=== PATIENT | female | born 1980 | race Caucasian/White ===

== ENCOUNTER 2024-07-01 17:31 | Emergency (ER) | payer OTHER, SELFPAY ==
[2024-07-01] VITALS (7 sets, daily range): BP systolic 104–173; BP diastolic 51–118; BMI 32.6
[2024-07-01 18:05] LABS: % Basophils 0.9 % (0-2); % Immature Granulocytes 0.4 % (0-0.5); % Lymphocytes 17.3 % (20.5-51.1); % Monocytes 7.9 % (1.7-9.3); % Neutrophils 69.5 % (42.2-75.2); Absolute Basophils 0.1 10^3/uL (0-0.2); Absolute Eosinophils 0.4 10^3/uL (0-0.7); Absolute Lymphocytes 1.9 10^3/uL (1.2-3.4); Absolute Monocytes 0.9 10^3/uL (0.1-0.6); Absolute Neutrophils 7.5 10^3/uL (1.4-6.5); Hematocrit 44.5 % (37.0-47.0); Hemoglobin 15.2 g/dL (12.0-16.0); Mean Corp Hgb Conc. 34.2 g/dL (33.0-37.0); Mean Corpuscular Hgb 31.7 pg (27.0-31.0); Mean Corpuscular Volume 92.7 fL (81.0-99.0); Mean Platelet Volume 9.8 fL (7.4-10.4); Nucleated Red Blood Cells % 0 %; Platelet Count 285 10^3/uL (130-400); Red Cell Dist. Width 12.4 % (11.5-14.5); White Blood Cell Count 10.8 10^3/uL (4.8-10.8)
[2024-07-01 18:21] LABS: ALT (SGPT) 17 U/L (0-35); AST (SGOT) 21 U/L (14-36); Albumin 4.5 g/dl (3.5-5.0); Alkaline Phosphatase 132 U/L (38-126); Blood Urea Nitrogen 13 mg/dl (7-17); Calcium 9.4 mg/dl (8.4-10.2); Carbon Dioxide 25 mmol/L (22-30); Chloride 102 mmol/L (98-107); Glucose 102 mg/dl (70-99); Potassium 4.4 mmol/L (3.5-5.1); Sodium 136 mmol/L (135-145); Total Bilirubin 0.6 mg/dl (0.2-1.3); Total Protein 7.5 g/dl (6.3-8.2); eGFR > 60.00
--- NOTE | 2024-07-01 20:26 | ED.GENMED ---
History of Present Illness
General
Chief Complaint: Blood Pressure Problem
Source: patient
Exam Limitations: none
Time Seen by Provider: 07/01/24 20:07
Nursing documentation reviewed up to this point in time: agreed with
History of Present Illness
History of Present Illness:
44-year-old female presenting to the emergency department today with concerns of elevated blood pressure while at physical therapy. Blood pressure was in the 180s over 110s. She came she had a vague headache she took Excedrin without relief. Does
have a history of MS which is why she was at PT in the first place. Denies any significant worsening symptoms or neurologic symptoms at this point no chest pain or shortness of breath. No changes in vision.
Review of Systems
Review of Systems
Allergies reviewed?: Yes
All Other Systems: ROS reviewed and negative except as documented in HPI and ROS
Phy Exam
Physical Exam
Physical Exam:
GENERAL: Alert , in no apparent distress
EYE: pupils equal and reactive
NECK: Supple, no significant adenopathy.
ENT: o/p clr, mmm.
CARDIAC: Regular rate and rhythm .
LUNGS: Clear breath sounds bilaterally, no acute respiratory distress, no wheezes/rales/rhonchi
ABDOMEN: Soft, without focal tenderness, no r/g, no cvat
NEUROLOGICAL: Alert and oriented, no focal neuro deficits
SKIN: Warm and dry, skin intact.
MUSCULOSKELETAL: No edema, well perfused.
PSYCH: Normal and appropriate interaction.
Course
Orders/Labs/Results
Orders:
Orders
07/01/24 17:39
Electrocardiogram (*1) Urgent
Reason for Study: Hypertension, Benign
EKG- Treatment ONCE
07/01/24 17:55
Complete Blood Count/With Diff Urgent
Comprehensive Metabolic Panel Urgent
07/01/24 20:26
Acetaminophen [Tylenol] 1,000 mg PO NOW STA
Ketorolac [Toradol] 15 mg IM NOW STA
07/01/24 22:14
CT Head W/o Iv Contrast Urgent
Comment:
Reason For Exam: PHELAN severe
Diphenhydramine [Benadryl] 25 mg IV NOW STA
Metoclopramide [Reglan] 10 mg IV NOW STA
07/01/24 22:15
0.9% Sodium Chloride 1000 ml [Nss] 1,000 ml IV BOLUS
Abnormal Lab Results
07/01/24
17:55
MCH 31.7 H pg
(27.0-31.0)
Absolute Neuts (auto) 7.5 H 10^3/uL
(1.4-6.5)
Absolute Monos (auto) 0.9 H 10^3/uL
(0.1-0.6)
Lymphocytes % 17.3 L %
(20.5-51.1)
Glucose 102 H mg/dl
(70-99)
Alkaline Phosphatase 132 H U/L
(38-126)
07/01/24 17:55
07/01/24 17:55
Vital Signs
Initial and Last Documented VS:
Initial Vital Signs
Temp Pulse Resp BP Pulse Ox
99.0 F 110 16 173/118 100
07/01/24 17:33 07/01/24 17:33 07/01/24 17:33 07/01/24 17:33 07/01/24 17:33
Last Documented Vital Signs
Temp Pulse Resp BP Pulse Ox
98.9 F 94 21 104/51 98
07/01/24 19:19 07/01/24 22:43 07/01/24 22:43 07/01/24 23:02 07/01/24 21:45
MDM/Problems Addressed
MDM/Problems Addressed:
44-year-old female presenting to the emergency department today with concerns of elevated blood pressure while at a physical therapy appointment. Blood pressure currently in the 160s over 110s during my assessment. Heart rate in the high 90s
otherwise vital signs are normal. Labs were obtained without acute abnormalities. Patient with normal neurologic evaluation patient CT scan without emergent findings. Blood pressure improving to normal levels. Patient no distress here headache
now resolved after receiving IV medications stable for outpatient management return precautions given.
*Critical Care Note
Total Time (30-74mins, 75-104mins- exclusive of procedures): Not Applicable
ED Attending Note
-
Portions of this chart may have been created with voice recognition software.� Occasional wrong word or��sound alike� substitutions may have occurred due to the inherent limitations of voice recognition software.
Discharge Plan
Departure
Patient Disposition: Home (Routine Discharge)
Date of Disposition: 07/02/24
Time of Disposition: 00:48
Patient with high blood pressure during this ER visit?: No
Condition: Good
Covid-19: Not Applicable
Discharge Problem:
Headache
Instructions: High Blood Pressure (DC)
Referrals:
Chuy Espinal MD [Family Provider] -
Activity Restrictions/Additional Instructions:
You came to the emergency department today with concerns of headache and additional symptoms as well as elevated blood pressure. Here your blood pressure improved and symptoms improved after treatment. You had a reassuring assessment with normal
labs and head CT. Please follow-up closely with your primary care doctor. Return for any worsening, new or concerning symptoms.
Interventions
Interventions:
*Risk Screen - Suicide Last Done: 07/01/24 17:33
*General Assessment Last Done: 07/01/24 17:33
*ED COVID-19 Vaccine History Last Done: 07/01/24 17:33
ED- Cardiac Assessment Last Done: 07/01/24 20:43
ED- Neurological Assessment Last Done: 07/01/24 20:43
ED- Pulmonary Assessment Last Done: 07/01/24 20:43
Discharge Date and Time
Print Language: KOREAN
[2024-07-01] MEDS: TORADOL 15 MG IM (20:36)
[2024-07-01] MEDS: TYLENOL 1000 MG PO (20:37)
[2024-07-01] MEDS: BENADRYL 25 MG IV (22:37)
[2024-07-01] MEDS: REGLAN 10 MG IV (22:37)
[2024-07-01] MEDS: NSS 1000 IV (22:42)
[2024-07-02 01:11] VITALS: BP 153/99
== END 2024-07-02 01:24 | disposition home or self-care (01) ==
LOC: EMR 17:31
PROVIDERS: Emergency Medicine; EMERGENCY PHYSICIAN Emergency Medicine; FAMILY PHYSICIAN Family Medicine
DX: R51.9 Headache, unspecified (principal); R03.0 Elevated blood-pressure reading, without diagnosis of hypertension; G35 Multiple sclerosis
CPT/HCPCS: 96374; 96375; 96372; 96361; 99284; 70450; 80053; 85025; 93005